=== PATIENT | female | born 1990 | race Caucasian/White ===

== ENCOUNTER 2025-02-05 08:05 | Observation (INO) | payer BC, SELFPAY ==
[2025-02-05 08:11] VITALS: BP 124/69; BMI 30.4
[2025-02-05] MEDS: LR 1000 IV ×2 (08:30→09:17)
== END 2025-02-05 10:46 | disposition home or self-care (01) ==
LOC: LDRP 08:05
PROVIDERS: ADMITTING PHYSICIAN Obstetrics & Gynecology; FAMILY PHYSICIAN Family Medicine
DX: O32.1XX0 Maternal care for breech presentation, not applicable or unspecified (principal); Z3A.37 37 weeks gestation of pregnancy
CPT/HCPCS: 36415; 76818; 86850; 86900; 86901; G0378

== ENCOUNTER 2025-02-26 19:37 | Inpatient (IN) | payer BC, SELFPAY ==
[2025-02-26 19:56] VITALS: BP 137/79; BMI 30.4
[2025-02-26 20:18] LABS: Hematocrit 31.7 % (37.0-47.0); Hemoglobin 10.8 g/dL (12.0-16.0); Mean Corp Hgb Conc. 34.1 g/dL (33.0-37.0); Mean Corpuscular Volume 79.8 fL (81.0-99.0); Nucleated Red Blood Cells % 0 %; Platelet Count 206 10^3/uL (130-400); Red Cell Dist. Width 13.1 % (11.5-14.5)
[2025-02-26] MEDS: CYTOTEC 25 MICROGRAM VAG (20:20)
[2025-02-27] MEDS: CYTOTEC 50 MICROGRAM PO (01:13)
[2025-02-27] MEDS: LR 1000 IV ×2 (01:32→03:36)
[2025-02-27] MEDS: STADOL 1 MG IV (03:35)
[2025-02-27] MEDS: SUBLIMAZE 100 MCG EPIDURAL (05:01)
[2025-02-27] MEDS: FENTANYL/BUPIVACAINE 100 EPIDURAL (05:01)
[2025-02-27] MEDS: CYTOTEC PO (07:09)
[2025-02-27] MEDS: MOTRIN 600 MG PO (15:21)
[2025-02-27] MEDS: COLACE 100 MG PO ×2 (15:24→20:35)
[2025-02-27] MEDS: PRENATAL PLUS 1 TABLET PO (15:25)
[2025-02-28 05:04] LABS: Hematocrit 30.2 % (37.0-47.0); Hemoglobin 10.0 g/dL (12.0-16.0)
[2025-02-28] MEDS: COLACE 100 MG PO (10:55)
[2025-02-28] MEDS: PRENATAL PLUS 1 TABLET PO (10:55)
[2025-02-28] MEDS: MOTRIN 600 MG PO (10:56)
[2025-03-02 13:55] LABS: Syphilis/T. pallidum Ab Reflex Negative (Negative)
== END 2025-02-28 15:04 | disposition home or self-care (01) | DRG 807 ==
LOC: LDRP 19:37
PROVIDERS: ADMITTING PHYSICIAN Obstetrics & Gynecology
PROC: 3E0P7VZ Introduction of Hormone into Female Reproductive, Via Natural or Artificial Opening (ICD-10-PCS; 2025-02-26)
PROC: 10E0XZZ Delivery of Products of Conception, External Approach (ICD-10-PCS; 2025-02-27)
PROC: 0KQM0ZZ Repair Perineum Muscle, Open Approach (ICD-10-PCS; 2025-02-27)
DX: O48.0 Post-term pregnancy (principal); Z37.0 Single live birth; Z3A.40 40 weeks gestation of pregnancy; O70.1 Second degree perineal laceration during delivery; O77.0 Labor and delivery complicated by meconium in amniotic fluid
CPT/HCPCS: 85014; 85018; 85025; 86780; 86850; 86900; 86901; 88307